=== PATIENT | female | born 1945 | race Caucasian/White ===

== ENCOUNTER 2018-07-12 04:50 | Inpatient (IN) ==
[2018-07-09 13:28] LABS: Appearance,Urine CLEAR; Bacteria,Urine 0 /hpf (0); Bilirubin,Urine NEG (NEG); Color,Urine STRAW; Glucose,Urine (UA) 50 mg/dL (NEG); Leukocyte Esterase,Urine 75 /uL (NEG); Mucus,Urine FEW /hpf (0); Protein,Urine NEG (NEG); Urine Blood NEG mg/dL (<0.03); Urine RBC 1 /hpf (0-1); Urine Squamous Epithelial Cell 1 /hpf (0-4); Urine Transitional Epi Cells < 1 /hpf (0-2); Urine WBC 2 /hpf (0-4); Urobilinogen,Urine NEG (NEG)
[2018-07-09 14:15] LABS: Basophils # (Auto) 0 K/mcL (0.0-0.3); Basophils % (Auto) 0.4 % (0.0-2.0); Eosinophils # (Auto) 0.3 K/mcL (0.0-0.7); Lymphocytes # (Auto) 1.4 K/mcL (1.5-4.8); Lymphocytes % (Auto) 20.5 % (15.5-49.0); Mean Cell Volume 92.8 fL (80.0-100.0); Mean Corpuscular HGB Conc 33.1 g/dL (31.0-36.0); Monocytes # (Auto) 0.3 K/mcL (0.1-0.9); Monocytes % (Auto) 5.1 % (1.0-12.0); Platelet Count 129 K/mcL (140-440); RBC 4.08 M/mcL (4.00-5.20); Red Cell Distribution Width 14.8 % (11.5-14.5)
[2018-07-09 14:28] LABS: Blood Urea Nitrogen 48 mg/dl (8-23)
[2018-07-12] MEDS ORDERED: 0.9 % SODIUM CHLORIDE 9 ML, KETOROLAC 30 MG, ROPIVACAINE HCL/PF 49.5 ML, EPINEPHrine 0.... IJ SCH (07:00)
[2018-07-12] MEDS ORDERED: ceFAZolin 1 GM VIAL IV SCH (07:00)
[2018-07-12] MEDS ORDERED: 0.9 % SODIUM CHLORIDE 9 ML, ROPIVACAINE HCL/PF 49.5 ML, EPINEPHrine 0.5 MG IJ SCH (07:30)
[2018-07-12] MEDS ORDERED: MIDAZOLAM 5 MG/5 ML VIAL IV ONE (07:45)
[2018-07-12] MEDS ORDERED: ROPIVACAINE HCL/PF 20 ML VIAL IJ ONE (07:45)
[2018-07-12] MEDS ORDERED: ePHEDrine 50 MG/ML AMPUL IV ONE (07:45)
[2018-07-12] MEDS ORDERED: fentaNYL 100 MCG/2 ML VIAL IV ONE (07:45)
[2018-07-12] MEDS ORDERED: ONDANSETRON 4 MG/2 ML VIAL IV ONE (07:45)
[2018-07-12] MEDS ORDERED: TRANEXAMIC ACID 1,000 MG/10 ML VIAL IV ONE ×2 (07:45→09:59)
[2018-07-12] MEDS ORDERED: PROPOFOL 200 MG/20 ML VIAL IV ONE (07:45)
[2018-07-12] MEDS ORDERED: DEXAMETHASONE 10 MG/ML VIAL IV ONE (07:45)
[2018-07-12] MEDS ORDERED: LIDOCAINE HCL/PF 100 MG/5 ML SYRINGE IV ONE (07:45)
[2018-07-12] MEDS ORDERED: METOPROLOL TARTRATE 5 MG/5 ML VIAL IV ONE (07:45)
[2018-07-12] MEDS ORDERED: GENTAMICIN SULFATE 800 MG/20 ML VIAL IR ONE (08:52)
[2018-07-12] MEDS ORDERED: LACTATED RINGERS 250 ML IV PRN (09:34)
[2018-07-12] MEDS ORDERED: PROMETHAZINE 25 MG/ML VIAL IV PRN (09:34)
[2018-07-12] MEDS ORDERED: diphenhydrAMINE 50 MG/ML VIAL IV PRN (09:34)
[2018-07-12] MEDS ORDERED: FLUMAZENIL 0.1 MG/ML ML IV PRN (09:34)
[2018-07-12] MEDS ORDERED: ACETAMINOPHEN 1,000 MG/100 ML BOTTLE IV ONE (09:34)
[2018-07-12] MEDS ORDERED: HYDROmorphone 2 MG/ML VIAL IV PRN (09:34)
[2018-07-12] MEDS ORDERED: ONDANSETRON 4 MG/2 ML VIAL IV PRN ×2 (09:34→09:59)
[2018-07-12] MEDS ORDERED: IPRATROPIUM/ALBUTEROL 3 ML AMPUL.NEB NEB PRN (09:34)
[2018-07-12] MEDS ORDERED: NALOXONE HCL 0.4 MG/ML VIAL IV PRN (09:34)
[2018-07-12] MEDS ORDERED: BENZOCAINE/MENTHOL 1 LOZENGE PO PRN ×2 (09:34→09:59)
[2018-07-12] MEDS ORDERED: LACTATED RINGERS 1,000 ML IV SCH (09:45)
[2018-07-12] MEDS ORDERED: MAGNESIUM HYDROXIDE 30 ML ORAL.SUSP PO PRN (09:59)
[2018-07-12] MEDS ORDERED: FLEETS ADULT ENEMA PR PRN (09:59)
[2018-07-12] MEDS ORDERED: BISACODYL 10 MG SUPP.RECT PR PRN (09:59)
[2018-07-12] MEDS ORDERED: POLYETHYLENE GLYCOL 3350 17 GM PACKET PO PRN (09:59)
[2018-07-12] MEDS ORDERED: SENNOSIDES/DOCUSATE SODIUM 1 TAB TABLET PO PRN (10:06)
[2018-07-12] MEDS ORDERED: NITROGLYCERIN 0.4 MG TAB.SUBL SL PRN (10:06)
--- NOTE | 2018-07-12 10:14 | Orthopedic Procedure Note ---
Date of procedure: Note initiated : 07/12/18 at 10:12 am Service Date, if different from initiated Date: [] Pre-op diagnosis: DJD left knee Post-op diagnosis: same Procedure: L TKR Grafts/Implants: triathlon-3 femur, 2 tibia, 27 patella, 14 mm insert Anesthesia: GETA Surgeon: Prasad Hooper Diesel Fitter Mechanic: Ahmet Thomason Estimated blood loss: 250 Pathology: none sent Description of procedure: Adam talha knee replacement Condition: stable Disposition: PACU
[2018-07-12] MEDS: fentaNYL 100 MCG/2 ML VIAL IV PRN ×4 (10:30→10:40)
[2018-07-12] MEDS: MEPERIDINE 25 MG/ML SYRINGE IV PRN ×2 (10:45→10:50)
--- NOTE | 2018-07-12 10:58 | Operative Note ---
DATE OF OPERATION: 07/12/2018 PREOPERATIVE DIAGNOSIS: Degenerative joint disease, left knee. POSTOPERATIVE DIAGNOSIS: Degenerative joint disease, left knee. OPERATION: Adam left total knee replacement. SURGEON: Prasad Hooper MD YARDER PUNCHER: Ahmet Thomason PA-C. ANESTHESIA: General done by Salvador Suh CRNA. ESTIMATED BLOOD LOSS: 250 mL TOURNIQUET TIME: 90 minutes. SUMMARY OF PROCEDURE: General anesthesia was attained. The left leg was prepped and draped. Two stab incisions were made in the tibia and two in the femur. Unicortical pins were placed into each bone followed by the appropriate arrays. After this, a midline incision was made from the quadriceps to the tibial tubercle. It was taken down sharply to the quadriceps and medial retinaculum. These were split longitudinally. The patella was mobilized laterally. The medial soft tissue was elevated. The patella was then mobilized from the tibial side to the lateral aspect. The fat pad was debrided. The quadriceps split was done in a medial vastus approach. The menisci were resected. At this point the hip center was located by rotating the hip and leg with the knee flexed in a counterclockwise direction. We also checked the medial malleolus and lateral malleolus. The checkpoints were next inserted, one in the femur, one in the tibia and these were identified on the robot. We then marked the anatomic landmarks on the femur and the anatomic landmarks on the tibia. The tibial cut was made. This was done with the assistance of the robot. The femoral cuts were next made as well. The balancing had been checked prior to making these cuts. We got excellent balance in flexion and extension. The bone was removed. The tibia was trialled and externally rotated. The tibia rotation was confirmed to be in good position on the robot. The broach cut was made in the tibia after reaming. The femur was then trialled. It was impacted and then pinned in place. The distal holes were made using a drill. We then did trials. The best combination of stability throughout and avoidance of hyperextension was with a 14 mm insert. Her valgus deformity was corrected. The patella was placed at a 90 degree angle. The depth was 18 mm. A 7 mm cut was made and the patella sized to 27. The component had an 8 mm buildup. The no-touch test showed a lateral release was needed. The bone surfaces were thoroughly irrigated. They were also dried using carbon dioxide system. A posterior block was placed for postoperative analgesia. The components were cemented in. Excess cement was removed. After the cement had hardened, the knee was injected with 1 gram of tranexamic acid. After the cement had hardened and excess cement was removed, we also used IrriSept. The knee was closed in 30 degrees of flexion. The quadriceps and medial retinaculum were closed in two layers. The first layer was buried #2 FiberWire. The second layer was a running locking Maxon. The array incisions were closed with running 4-0 nylon. The subcutaneous tissue was closed with buried 2-0 Monocryl and the skin was closed with Dermabond. A sterile compressive dressing was applied. The sponge and needle count was correct. The patient tolerated the procedure well. She was taken to the recovery room in stable condition. TJF:kh Job ID: [id number] Doc ID: [id number] Prasad Hooper MD
--- NOTE | 2018-07-12 11:24 | XRay Report ---
CLINICAL INFORMATION: Post-op total knee COMPARISON: None. FINDINGS: Total knee prosthesis is anatomically aligned. No osseous abnormality. Periarticular soft tissue seen as expected IMPRESSION: Negative Interpreted and Authenticated by: Monty Fox 07/12/18
[2018-07-12] MEDS: 0.9 % SODIUM CHLORIDE 1,000 ML IV SCH (11:45)
[2018-07-12] MEDS: 0.9 % SODIUM CHLORIDE 10 ML SYRINGE IV SCH ×3 (13:23→21:28)
[2018-07-12] MEDS: HYDROCODONE/APAP 7.5/325MG TABLET PO PRN ×3 (13:32→22:35)
[2018-07-12] MEDS ORDERED: WARFARIN 5 MG TABLET PO SCH (14:00)
--- NOTE | 2018-07-12 14:29 | Internal Medicine Consult Note ---
Medical - CN: [facility] - Data of Consult Consult date: 07/12/18 Requesting physician: Prasad Hooper Primary Care Provider: Giana Moraes Family Provider: Giana Moraes - Consult Narrative Reason for consult: Management of medical issues History of present illness: Ms. Monte is a 72 year old F who underwent left knee replacement by Dr. Hooper orthopedics. Postoperatively hospitalist services were consulted for management of pre-existing medical issues. At the time of evaluation patient was seen immediately postoperative. She is doing well without any distress. She denies chest pain lightheadedness dizziness. Hemodynamics and vital stable. Reviewed labs. Reviewed prior medical records. Patient denies any history of atrial fibrillation/hypertension and unilateral kidney status post nephrectomy in 2002. She was not hemodialysis for 6 months in 2009 following cardiac surgery leading to ischemic ATN. She however recovered and currently at baseline renal function with creatinine 2.5. She follows up at [facility] with Dr. Liriano nephrology. Her diabetes has been well controlled Patient denies postoperative nausea vomiting, chest pain, shortness of breath. She denies recent hospitalization. Medication list was reviewed. Review of systems Negative except for as above CC: Prasad Hooper Medical - CN: PMH Medical history: DM type II Hypertension Atrial fibrillation Anticoagulation on Coumadin Degenerative joint disease Hyperlipidemia Restless leg syndrome History of chronic kidney disease managed by Dr. liriano at [facility] . 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 Mitral/tricuspid valve repair 2009 ASD repair 1968 Abdominal hysterectomy Bilateral salpingo-nephrectomy Lap geraldo 1978 Appendectomy/cataract surgery August 2008 Pertinent family history: Mother coronary disease/MN Father at age 75 secondary to heart disease Half-brother coronary disease Hypertension 2 half sisters Social history: Patient is Lives in [place] Moved to [facility] April 2008 from [place] No smoking alcoholism Smoking status: Never smoker Medical - CN: Meds Home Medications Medication Instructions Recorded Confirmed Type Acetaminophen [Tylenol 8 Hour] 650 mg PO Q8HP PRN 07/09/18 07/12/18 History Ascorbic Acid [Vitamin C] 1,000 mg PO DAILY 07/09/18 07/12/18 History Bisacodyl [Dulcolax] 5 mg PO HS 07/09/18 07/12/18 History Calcitriol [Rocaltrol] 0.25 mcg PO Q48H 07/09/18 07/12/18 History Cyanocobalamin (Vitamin B-12) 1,000 mcg SL DAILY 07/09/18 07/12/18 History [Vitamin B-12] Ergocalciferol (Vitamin D2) 4,000 unit PO DAILY 07/09/18 07/12/18 History [Vitamin D2] Insulin Detemir [Levemir] 12 unit SQ ACB 07/09/18 07/12/18 History Losartan [Cozaar] 25 mg PO DAILY 07/09/18 07/12/18 History Metoprolol Succinate [Toprol Xl] 25 mg PO HS 07/09/18 07/12/18 History Nitroglycerin [Nitrostat] 0.4 mg SL Q5M PRN 07/09/18 07/09/18 History [place]-3 Fatty Acids/Fish Oil 1 cap PO DAILY 07/09/18 07/12/18 History [[place] 3 Fish Oil Softgel] Potassium Chloride [Klor-Con 10] 10 meq PO [facility] 07/09/18 07/12/18 History Pramipexole [Mirapex] 1.25 mg PO DAILY@1400 07/09/18 07/12/18 History Pravastatin [Pravachol] 40 mg PO 07/09/18 07/12/18 History Sennosides/Docusate Sodium 1 - 2 tab PO HSP PRN 07/09/18 07/12/18 History [Docusate Sodium-Sennosides Tab] Torsemide [Demadex] 20 mg PO DAILY 07/09/18 07/12/18 History Vitamin E 400 unit PO DAILY 07/09/18 07/12/18 History Warfarin [Coumadin] 5 mg PO SUTUWETHFRSA@2100 07/09/18 07/12/18 History Warfarin [Coumadin] 7.5 mg PO MO@2100 07/09/18 07/12/18 History oxyCODONE/APAP [Percocet 5-325 mg] 0.25 tab PO HS 07/09/18 07/12/18 History Allergies Allergy/AdvReac Type Severity Reaction Status Date / Time amlodipine AdvReac Mild Rash Verified 07/12/18 05:08 Amoxicillin [From Augmentin] AdvReac Mild Nausea Verified 07/12/18 05:08 clavulanic acid AdvReac Mild Nausea Verified 07/12/18 05:08 [From Augmentin] gabapentin AdvReac Mild Nausea Verified 07/12/18 05:08 Sulfa (Sulfonamide AdvReac Mild Nausea Verified 07/12/18 05:08 Antibiotics) IV CONTRAST AdvReac Mild Other Uncoded 07/09/18 11:12 Medical - CN: Exam - Constitutional Vitals: Temp Pulse Resp BP Pulse Ox 97.2 F 100 H 17 129/77 99 07/12/18 11:21 07/12/18 11:21 07/12/18 11:21 07/12/18 11:21 07/12/18 11:21 General appearance: no acute distress Exam: Alert oriented Nonlabored breathing Eye movements symmetrical Oral cavity dry No ear nose discharge Head normocephalic Neck no lymphadenopathy S1-S2 irregular rhythm Clear to auscultation bilaterally Abdomen soft Skin no suspicious lesion Psych alert cooperative Neuro nonfocal Left knee postsurgical dressing Medical - CN: Result - Labs CBC & Chem 7: 07/09/18 11:50 07/09/18 11:49 Medical - CN: A/P (1) Status post left knee replacement Status: Acute Assessment and plan: * Status post left knee replacement-postoperative management per orthopedics Medical consult * History of CKD stage III-currently at baseline. Nephrology consult if elevation creatinine noted * History of atrial fibrillation continue metoprolol, Coumadin for CVA prophylaxis * Hypertension continue losartan/metoprolol * history of restless leg syndrome continue pramipexole * Hyperlipidemia on statin * DM type II continue basal prandial insulin * Prophylaxis on Coumadin * Full code Plan * Prior medical issue management as above * Postoperative care/pain management/postop rehab as per orthopedics
[2018-07-12] MEDS: PRAMIPEXOLE 0.25 MG TABLET PO SCH (14:37)
[2018-07-12] MEDS: ENOXAPARIN 30 MG/0.3 ML SYRINGE SQ SCH (15:43)
[2018-07-12] MEDS: ceFAZolin 1 GM VIAL IV SCH ×2 (15:43→23:35)
[2018-07-12] MEDS: METHOCARBAMOL 750 MG TABLET PO PRN ×2 (15:43→22:40)
[2018-07-12] MEDS: INSULIN LISPRO 1 UNIT/0.01 ML UNIT SQ SCH ×2 (18:09→21:03)
[2018-07-12] MEDS: DOCUSATE SODIUM 100 MG CAPSULE PO SCH (20:31)
[2018-07-12] MEDS ORDERED: METOPROLOL SUCCINATE 25 MG TAB.XL.24H PO SCH (21:00)
[2018-07-12] MEDS ORDERED: SIMVASTATIN 20 MG TABLET PO SCH (21:00)
[2018-07-12] MEDS ORDERED: SENNOSIDES 1 TABLET PO SCH (21:00)
[2018-07-12] MEDS ORDERED: BISACODYL 5 MG TABLET PO SCH (21:00)
[2018-07-13] MEDS: 0.9 % SODIUM CHLORIDE 1,000 ML IV SCH (03:30)
[2018-07-13] MEDS: HYDROCODONE/APAP 7.5/325MG TABLET PO PRN ×3 (05:55→13:42)
[2018-07-13] MEDS: 0.9 % SODIUM CHLORIDE 10 ML SYRINGE IV SCH (06:35)
[2018-07-13] MEDS ORDERED: INSULIN GLARGINE, HUMAN 1 UNIT/0.01 ML SQ SCH (07:30)
--- NOTE | 2018-07-13 07:32 | Discharge Summary ---
Providers - Providers Patient information: Note initiated : 07/13/18 at 7:27 am Service Date, if different from initiated Date: [] Patient: Rachel Monte 72 y/o F admitted on 07/12/18 for Left Robotic Total Knee Arthroplasty. Chief Complaint: [] Discharge date: 07/13/18 Hospitalization Hospital course: Patient was admitted after surgery for PT and post operative pain control Discharge diagnosis: s/p Left TKA Exam - Exam Incision healing: Yes Clean and dry: Yes Weight bearing status: full Range of motion: 15-45 Ortho Discharge - TKA - Patient Instructions Diet: Regular Diet Activity: activity as tolerated Total Knee Protocol: For Total Knee: Start ROM RUKHSANA with stationary bike or rocking chair. Work on gaining full extension of knee. Posterior dislocation precautions provided. Hip abductor strengthening and gait training instructions provided. Apply Cryocuff as instructed. Dressing Care: Aquacel Ag - leave on for 5 days - Follow Up Plan Follow Up Appointments: Ahmet Thomason PA-C [Physician Window Cutter] - 07/25/18 1:10 pm Disposition: Home, Self-Care Prognosis: Good Rehab Potential: Good Overall status at discharge: patient is progressing back to baseline - Orders For Discharge Prescriptions: Hydrocodone/APAP 7.5/325Mg [[place] 7.5-325Mg] 1 - 2 tab PO Q4HP PRN #90 tab PRN Reason: Pain Pending Studies Resuscitation Status Full Code Diet Consistent Carbohydrate Diet Start MonJul 12 1245 Hydrocodone Bitart/Acetaminophen ([place] 7.5/325mg) 0 tab PO Q4HP PRN PRN Reason: PAIN LEVEL 3-6 Last Admin: 07/13/18 05:55 Dose: 2 tab Documented by: Admin: 07/12/18 22:35 Dose: 1 tab Documented by: Admin: 07/12/18 20:31 Dose: 0.5 tab Documented by: Admin: 07/12/18 13:32 Dose: 0.5 tab Documented by: GISSEL Bisacodyl (Dulcolax) 5 mg PO HS DONNY Last Admin: 07/12/18 20:30 Dose: 5 mg Documented by: KALEY Diagnostic Test (Pha) (Accu-Chek) 1 each FS ACHS DONNY Last Admin: 07/12/18 20:56 Dose: 1 each Documented by: Admin: 07/12/18 17:25 Dose: 1 each Documented by: [email or web address] Admin: 07/12/18 12:35 Dose: 1 each Documented by: DIANA Docusate Sodium (Colace) 100 mg PO BID [facility] Last Admin: 07/12/18 20:31 Dose: 100 mg Documented by: KALEY Enoxaparin Sodium (Lovenox) 30 mg SQ DAILY [facility] Stop: 07/14/18 09:01 Last Admin: 07/12/18 15:43 Dose: 30 mg Documented by: GISSEL Sodium Chloride (Sodium Chloride 0.9%) 1,000 mls @ 75 mls/hr IV .[id number] [facility] Stop: 07/13/18 12:39 Last Admin: 07/13/18 03:30 Dose: Not Given Documented by: Infusion: 07/13/18 03:30 Dose: 0 mls/hr Documented by: Infusion: 07/12/18 18:50 Dose: 0 mls/hr Documented by: Admin: 07/12/18 11:45 Dose: 75 mls/hr Documented by: GISSEL Insulin Human Lispro (Humalog) 0 unit SQ ACHS [facility]; Protocol Last Admin: 07/12/18 21:03 Dose: 8 units Documented by: Admin: 07/12/18 18:09 Dose: 12 units Documented by: GISSEL Methocarbamol (Robaxin) 750 mg PO Q6HP PRN PRN Reason: Muscle Spasm Last Admin: 07/12/18 22:40 Dose: 750 mg Documented by: Admin: 07/12/18 15:43 Dose: 750 mg Documented by: GISSEL Metoprolol Succinate (Toprol Xl) 25 mg PO HS [facility] Last Admin: 07/12/18 20:31 Dose: 25 mg Documented by: KALEY Morphine Sulfate (Morphine) 0 mg IV Q1HP PRN PRN Reason: PAIN LEVEL > 6 Last Admin: 07/12/18 23:30 Dose: 2 mg Documented by: Admin: 07/12/18 12:18 Dose: 2 mg Documented by: Admin: 07/12/18 11:45 Dose: 2 mg Documented by: GISSEL Pramipexole Dihydrochloride (Mirapex) 1.25 mg PO DAILY@1400 [facility] Last Admin: 07/12/18 14:37 Dose: 1.25 mg Documented by: GISSEL Senna (Senokot) 2 tab PO [facility] Last Admin: 07/12/18 20:30 Dose: 2 tab Documented by: KALEY Simvastatin (Zocor) 20 mg PO [facility] Last Admin: 07/12/18 20:31 Dose: 20 mg Documented by: KALEY Sodium Chloride (Saline Flush) 10 ml IV Q8 [facility] Last Admin: 07/13/18 06:35 Dose: 10 ml Documented by: Admin: 07/12/18 21:28 Dose: 10 ml Documented by: EARNEST Cosigned by: MANDI Admin: 07/12/18 20:34 Dose: 10 ml Documented by: Admin: 07/12/18 13:23 Dose: Not Given Documented by: GISSEL Warfarin Sodium (Coumadin) 5 mg PO DAILY@1400 [facility] Last Admin: 07/12/18 14:38 Dose: 5 mg Documented by: GISSEL Shift Summary 07/13/18 05:09 Shift Summary by Netta Sandra Patient slept well this shift. Patient alert and oriented. Up with 1 assist to bedside commode using FWW and GB. Still has numbness on left lower leg. Tolerated CPM 30-40 deg for 70 mins. Complained of pain 8-9/10, given Hydrocodone 7.5-325 1/2 tab x1, 1 tab x1. Also given Robaxin x1 with no effect. Morphine 2mg x1 given with good relieft. Left knee dressing CDI. Cryo-cuff applied. CHUCKY pumps applied. IV on LFA saline locked.BSL 279, given 8 units of sliding scale insulin. Patient using IS 1000 level. VSS. Initialized on 07/13/18 05:09 - END OF NOTE
[2018-07-13 07:55] LABS: Mean Cell Volume 92.1 fL (80.0-100.0); Mean Corpuscular HGB Conc 33.4 g/dL (31.0-36.0); Platelet Count 92 K/mcL (140-440); RBC 3.39 M/mcL (4.00-5.20); Red Cell Distribution Width 14.3 % (11.5-14.5)
[2018-07-13 08:17] LABS: ALT/SGPT 14 U/l (0-40); Albumin 3.4 gm/dL (3.2-5.2); Albumin/Globulin Ratio 1.1 (1.0-2.3); Alkaline Phosphatase 51 U/L (39-117); Bilirubin,Direct < 0.2 mg/dL (0.0-0.3); Blood Urea Nitrogen 51 mg/dl (8-23); Gamma Glutamyl Transpeptidase 32 U/L (5-36)
[2018-07-13] MEDS: ENOXAPARIN 30 MG/0.3 ML SYRINGE SQ SCH (08:33)
[2018-07-13] MEDS: INSULIN LISPRO 1 UNIT/0.01 ML UNIT SQ SCH ×2 (08:33→11:52)
[2018-07-13] MEDS: DOCUSATE SODIUM 100 MG CAPSULE PO SCH (08:34)
[2018-07-13] MEDS ORDERED: TORSEMIDE 10 MG TABLET PO SCH (09:00)
[2018-07-13] MEDS ORDERED: LOSARTAN 25 MG TABLET PO SCH (09:00)
[2018-07-13 09:38] LABS: Band Neutrophils % 9 % (0-10); Lymphocytes % 12 % (15-49); Monocytes % (Manual) 5 % (1-12); Platelet Estimate DECREASED (NORMAL); RBC Morphology NORMAL (NORMAL); Segmented Neutrophils % 74 % (38-78)
--- NOTE | 2018-07-13 10:25 | Internal Med Progress Note ---
Medical - PN: Subj Patient information: Note initiated : 07/13/18 at 10:22 am Service Date, if different from initiated Date: [] Patient: Rachel Monte a 72 y/o F admitted on 07/12/18 for Left Robotic Total Knee Arthroplasty. Chief Complaint: [] Interval history: Ms. Monte is a 72 year old F who underwent left knee replacement by Dr. Hooper orthopedics. Postoperatively hospitalist services were consulted for management of pre-existing medical issues. At the time of evaluation patient was seen immediately postoperative. She is doing well without any distress. She denies chest pain lightheadedness dizziness. Hemodynamics and vital stable. Reviewed labs. Reviewed prior medical records. Patient denies any history of atrial fibrillation/hypertension and unilateral kidney status post nephrectomy in 2002. She was not hemodialysis for 6 months in 2009 following cardiac surgery leading to ischemic ATN. She however recovered and currently at baseline renal function with creatinine 2.5. She follows up at [facility] with Dr. Echeverria nephrology. Her diabetes has been well controlled Patient denies postoperative nausea vomiting, chest pain, shortness of breath. She denies recent hospitalization. Medication list was reviewed. 2-patient doing well. No overnight events. Ongoing physical therapy. No significant postoperative pain bleeding. Will likely discharge today per orthopedics. No further recommendations from hospitalist service. Continue existing medications. Reviewed labs, creatinine 2.2 INR 1.3, stable vitals - Constitutional Vitals: Vital Signs Temp Pulse Resp BP Pulse Ox 97.2 F 83 18 97/50 95 07/13/18 08:59 07/13/18 08:59 07/13/18 04:00 07/13/18 08:59 07/13/18 08:59 Period Temp Pulse Resp BP Sys/Arrington Pulse Ox Last 24 Hr 97.2 F-98.5 F 80-109 14-20 97-150/50-96 94-100 Intake and Output 07/12/18 07/13/18 07/13/18 21:59 05:59 13:59 Intake Total 771 200 240 Output Total 525 375 175 Balance 246 -175 65 Weight 154 lb Intake & Output: Intake & Output 07/12/18 07/13/18 07/13/18 21:59 05:59 13:59 Intake Total 771 200 240 Output Total 525 375 175 Balance 246 -175 65 Weight 154 lb Intake: IV 531 0 Sodium Chloride 0.9% 1,000 ml @ 531 0 75 mls/hr IV .[id number] [facility] Rx#: [id number] Oral 240 200 240 Output: Void Amount 525 375 175 Other: Meal Dinner Breakfast Percent of Meal Consumed 100% 100% Feeding Ability Independent Urine Appearance Clear Urine Color Bright Yellow Light Leslie Urine Odor Normal # Voids 1 General appearance: no acute distress Exam: Alert oriented nonlabored breathing No anxiety Left knee postoperative dressing Medical - PN: Obj Da - Labs CBC & Chem 7: 07/13/18 06:36 07/13/18 06:36 Labs: Abnormal Lab Results 07/13/18 07/13/18 07/13/18 06:36 06:36 06:36 RBC 3.39 L Hgb 10.4 L Hct 31.2 L Plt Count 92 L Lymphocytes % 12 L PT 16.6 H INR 1.3 H BUN 51 H Creatinine 2.2 H Glucose 167 H Meds: Medications Hydrocodone Bitart/Acetaminophen ([place] 7.5/325mg) 0 tab PO Q4HP PRN PRN Reason: PAIN LEVEL 3-6 Last Admin: 07/13/18 10:03 Dose: 2 tab Documented by: Bisacodyl (Dulcolax) 10 mg ND Q2-3DAYS PRN PRN Reason: Constipation Bisacodyl (Dulcolax) 5 mg PO HS [facility] Last Admin: 07/12/18 20:30 Dose: 5 mg Documented by: Diagnostic Test (Pha) (Accu-Chek) 1 each FS ACHS [facility] Last Admin: 07/13/18 07:47 Dose: 1 each Documented by: Docusate Sodium (Colace) 100 mg PO BID [facility] Last Admin: 07/13/18 08:34 Dose: 100 mg Documented by: Enoxaparin Sodium (Lovenox) 30 mg SQ DAILY [facility] Stop: 07/14/18 09:01 Last Admin: 07/13/18 08:33 Dose: 30 mg Documented by: Sodium Chloride (Sodium Chloride 0.9%) 1,000 mls @ 75 mls/hr IV .[id number] [facility] Stop: 07/13/18 12:39 Last Infusion: 07/13/18 03:30 Dose: Infused Documented by: Insulin Glargine (Lantus) 12 unit SQ ACB [facility] Last Admin: 07/13/18 08:33 Dose: 12 units Documented by: Insulin Human Lispro (Humalog) 0 unit SQ ACHS [facility]; Protocol Last Admin: 07/13/18 08:33 Dose: 2 units Documented by: Losartan Potassium (Cozaar) 25 mg PO DAILY [facility] Last Admin: 07/13/18 08:34 Dose: 25 mg Documented by: Magnesium Hydroxide (Milk Of Magnesia) 30 ml PO BIDP PRN PRN Reason: Constipation Methocarbamol (Robaxin) 750 mg PO Q6HP PRN PRN Reason: Muscle Spasm Last Admin: 07/12/18 22:40 Dose: 750 mg Documented by: Metoprolol Succinate (Toprol Xl) 25 mg PO [facility] Last Admin: 07/12/18 20:31 Dose: 25 mg Documented by: Morphine Sulfate (Morphine) 0 mg IV Q1HP PRN PRN Reason: PAIN LEVEL > 6 Last Admin: 07/12/18 23:30 Dose: 2 mg Documented by: Nitroglycerin (Nitrostat) 0.4 mg SL Q5M PRN PRN Reason: Chest Pain Ondansetron HCl (Zofran) 4 mg IV Q4HP PRN PRN Reason: Nausea And Vomiting Polyethylene Glycol (Miralax) 17 gm PO DAILYP PRN PRN Reason: Constipation Pramipexole Dihydrochloride (Mirapex) 1.25 mg PO DAILY@1400 [facility] Last Admin: 07/12/18 14:37 Dose: 1.25 mg Documented by: Senna (Senokot) 2 tab PO [facility] Last Admin: 07/12/18 20:30 Dose: 2 tab Documented by: Senna/Docusate Sodium (Senna Plus Tablet) 1 - 2 tab PO HSP PRN PRN Reason: Constipation Simvastatin (Zocor) 20 mg PO [facility] Last Admin: 07/12/18 20:31 Dose: 20 mg Documented by: Sodium Biphosphate/Sodium Phosphate (Fleets Adult) 1 dose ND Q3-4DAYS PRN PRN Reason: Constipation Sodium Chloride (Saline Flush) 10 ml IV Q8 [facility] Last Admin: 07/13/18 06:35 Dose: 10 ml Documented by: Throat Lozenges (Cepacol) 1 lozenge PO PRN PRN PRN Reason: Sore Throat Torsemide (Demadex) 20 mg PO DAILY [facility] Last Admin: 07/13/18 08:34 Dose: 20 mg Documented by: Warfarin Sodium (Coumadin) 5 mg PO DAILY@1400 [facility] Last Admin: 07/12/18 14:38 Dose: 5 mg Documented by: Medical - PN: A/P - Time Spent With Patient Total time spent is greater than 50% in coordination of care (as documented) at patient's floor/unit and/or counseling patient: 15 - 24 minutes (1) Status post left knee replacement Status: Acute Assessment and plan: * Status post left knee replacement-postoperative management per orthopedics. Will likely discharge later today Medical consult * History of CKD stage III-currently at baseline. Creatinine 2.2 * History of atrial fibrillation -stable and rate controlled on metoprolol, Coumadin for CVA prophylaxis, INR 1.3 * Hypertension stable on e losartan/metoprolol * history of restless leg syndrome continue pramipexole * Hyperlipidemia on statin * DM type II continue basal prandial insulin. Blood sugar 163 this morning * Prophylaxis on Coumadin * Full code Plan * Continue pre-existing medical condition management as above * Possible discharge today per orthopedics * Continue PT OT * Hospitalist service signing off * No further recommendations for discharge medications. Continue existing medication Current Visit: Yes Medical - PN: Qual - VTE Deep Vein Thrombosis/Pulmonary Embolism Present on Admission: No
[2018-07-13] MEDS: PRAMIPEXOLE 0.25 MG TABLET PO SCH (13:42)
== END 2018-07-13 13:50 | disposition home or self-care (01) | DRG 470 ==
LOC: MEDSUR 04:50
PROVIDERS: ADMIT Orthopaedic Surgery Foot and Ankle Surgery; ATTEND Orthopaedic Surgery Foot and Ankle Surgery